=== PATIENT | male | born 1955 | race Caucasian/White ===

== ENCOUNTER 2021-02-11 09:07 | Emergency (ER) | payer MEDICARE ==
[2021-02-11 09:21] VITALS: BP 154/86; PULSE 91; RESP 18; TEMP 98.3
--- NOTE | 2021-02-11 10:08 | ED ---
Recheck HPI - General Chief Complaint: Recheck/Abnormal Lab/Rx Stated Complaint: covid exposure Time Seen by Provider: 02/11/21 09:14 Source: patient, RN notes reviewed Mode of arrival: ambulatory Limitations: no limitations - History of Present Illness Initial Comments: 65-year-old male presents emergency department for COVID-19 testing. Patient states he is asymptomatic patient's significant other is symptomatic and he is concerned. No fevers chills no cough or cold like symptoms or complaints. - Related Data Home Medications Medication Instructions Recorded Confirmed Calcium Carbonate [Tums] 500 mg PO DIRECTED PRN 01/06/15 07/20/15 Multivitamins, Thera [Theragran] 1 each PO DAILY 01/06/15 07/20/15 Simvastatin [Zocor] 40 mg PO HS 01/06/15 07/20/15 Allergies Allergy/AdvReac Type Severity Reaction Status Date / Time atorvastatin calcium Allergy Severe Rapid Verified 02/11/21 09:17 [From Lipitor] Heart Rate, Sweating. rosuvastatin calcium Allergy Severe Rapid Verified 02/11/21 09:17 [From Crestor] Heart Rate, Sweating diphenhydramine HCl AdvReac Unknown Very Sleepy Verified 02/11/21 09:17 [From Benadryl] terfenadine [From Seldane] AdvReac Unknown Very Sleepy Verified 02/11/21 09:17 Review of Systems ROS Statement: Those systems with pertinent positive or pertinent negative responses have been documented in the HPI. ROS Other: All systems not noted in ROS Statement are negative. Past Medical History Past Medical History: GERD/Reflux Additional Past Medical History / Comment(s): MITRAL VALVE PROLAPSE, HEART MURMUR, HEMORRHOIDS. History of Any Multi-Drug Resistant Organisms: None Reported Past Surgical History: No Surgical Hx Reported Additional Past Surgical History / Comment(s): WISDOM TEETH REMOVED Additional Past Anesthesia/Blood Transfusion Reaction / Comment(s): NO HX OF ANESTHESIA. Past Psychological History: No Psychological Hx Reported Smoking Status: Never smoker Past Alcohol Use History: Rare Past Drug Use History: None Reported - Past Family History Mother Family Medical History: No Reported History General Exam Limitations: no limitations General appearance: alert, in no apparent distress Head exam: Present: atraumatic, normocephalic, normal inspection Eye exam: Present: normal appearance, PERRL, EOMI. Absent: scleral icterus, conjunctival injection, periorbital swelling ENT exam: Present: normal exam, mucous membranes moist Neck exam: Present: normal inspection, full ROM. Absent: tenderness, meningismus, lymphadenopathy Respiratory exam: Present: normal lung sounds bilaterally. Absent: respiratory distress, wheezes, rales, rhonchi, stridor Cardiovascular Exam: Present: regular rate, normal rhythm, normal heart sounds. Absent: systolic murmur, diastolic murmur, rubs, gallop, clicks Neurological exam: Present: alert Skin exam: Present: warm, dry, intact, normal color. Absent: rash Course Vital Signs 02/11/21 09:18 Temperature 98.3 F Pulse Rate 91 Respiratory 18 Rate Blood Pressure 154/86 O2 Sat by Pulse 100 Oximetry Medical Decision Making - Medical Decision Making Negative covid 19 testing. Patient discharged in stable condition. - Lab Data Lab Results 02/11/21 Range/Units 09:21 Coronavirus (PCR) Not Detected (Not Detectd) Disposition Clinical Impression: Encounter for laboratory testing for COVID-19 virus Disposition: HOME SELF-CARE Condition: Stable Additional Instructions: Please return to the Emergency Department if symptoms worsen or any other concerns. Is patient prescribed a controlled substance at d/c from ED?: No Referrals: Alex Narayan MD [Primary Care Provider] - 1-2 days Time of Disposition: 10:07
== END 2021-02-11 10:30 | disposition home or self-care (01) ==
LOC: EC 09:07
DX: Z20.822 Contact with and (suspected) exposure to COVID-19 (principal); Z88.8 Allergy status to other drugs, medicaments and biological substances
CPT/HCPCS: 87635; 99283